=== PATIENT | female | born 1965 | race Caucasian/White ===

== ENCOUNTER 2017-02-22 12:31 | Outpatient (CLI) | payer OTHER ==
--- NOTE | 2017-02-22 18:54 | DIAGNOSTIC IMAGING REPORT ---
PROCEDURE: MR CERVICAL SPINE W/O CONT INDICATION: DEGENERATIVE CERVICAL DISC TECHNIQUE: T1, T2, and STIR sagittal sequences. T2 and GRE axial sequences. Bilateral T2 sagittal obliques. COMPARISON: Plain films of the cervical spine 05/27/2015 FINDINGS: Suboptimal study secondary to motion on multiple sequences. Alignment and curvature: The craniocervical junction is intact. Grade 1 anterolisthesis C4-5, and C5 and C6. Trace C6-7 retrolisthesis. This results in a cervical kyphosis with the C6 apex. This is chronic compared to the prior plain film. Vertebral bodies: There is chronic-appearing degenerative compression of C6 with moderate to large anterior spurs at C6 and C7. Moderate diffuse vertebral body edema in the C4 and C5. Linear edema along the inferior C4 endplate and superior C5 end plate suggestive of impending compression. Disc spaces: Moderately severe disc height loss C6-7 and C7-T1 and mild disc height loss C5-6 and C4-5. No significant change compared to the prior plain film. Spinal canal: Full evaluation slightly limited without intravenous contrast. The cord caliber beginning at the C3-4 level appears moderately increased through the C5 level. Slightly increased T2 signal within the cord at this level and trace corresponding signal loss on T1. Paraspinal soft tissues: No obvious mass. C2-3: Slight uncovertebral joint hypertrophy on the right and the slight facet arthropathy on the left results in minor bilateral foraminal narrowing. C3-4: Severe left-sided facet arthropathy and mild uncovertebral joint hypertrophy results in moderate left foraminal narrowing. Mild right facet arthropathy. C4-5: Moderate diffuse posterior disc bulge. Severe facet arthropathy bilaterally. Moderate right and severe left foraminal narrowing. Near complete effacement of the peripheral CSF. There may be slight expansion of the cord size. C5-6: Mild posterior disc osteophyte complex. Severe left and mild right facet arthropathy. Severe left, and mild right foraminal narrowing. C6-7: Mild posterior disc osteophyte complex. Mild to moderate bilateral facet arthropathy. Moderate right and mild left foraminal narrowing. C7-T1: Mild circumferential disc osteophyte complex. Mild bilateral facet arthropathy. Moderate right, and mild left foraminal narrowing. IMPRESSION: 1. Slight expansion of the cord size from C3-4 through C5. This could be artifactual given the curvature of the canal at this point, and the amount of motion on multiple sequences. However, further evaluation with intravenous contrast is recommended. 2. Left-sided facet arthropathy at multiple levels, along with disc osteophyte complex and uncovertebral joint hypertrophy results in multilevel left-sided foraminal narrowing, at some levels to a severe degree (C5-6). Multilevel left- sided radiculopathy could be present. 3. Moderate right foraminal narrowing at C4-5, C6-7, and C7-T1 may result in right C5, C7, or C8 radiculopathy. 4. Edema in the C4 and C5 vertebral bodies suggestive of impending compression deformities. 5. Chronic spondylolisthesis results in a kyphosis of the cervical spine.
== END 2017-02-22 23:00 | disposition home or self-care (01) ==
LOC: MRI SRH 12:31
DX: M50.30 Other cervical disc degeneration, unspecified cervical region (principal); M48.02 Spinal stenosis, cervical region; M48.04 Spinal stenosis, thoracic region; M43.12 Spondylolisthesis, cervical region